=== PATIENT | male | born 1960 | race Caucasian/White ===

== ENCOUNTER 2019-04-03 07:33 | Inpatient (IN) ==
--- NOTE | 2019-03-20 14:17 | PAT Medication Instructions ---
Medication Instructions Date of Service March 20, 2019 Home Medications ascorbic acid (vitamin C) [Vitamin 1 g PO DAILY cyanocobalamin (vitamin B-12) 500 mcg PO DAILY lisinopril 5 mg PO QAM agntabcb-khm-GR-lycopen-lutein 1 tab PO DAILY [Centrum Silver Men] omeprazole 20 mg PO UD PRN pravastatin 40 mg PO QAM zinc 50 mg PO DAILY STOP taking 2 weeks before surgery (or as soon as possible if surgery is within 2 weeks) abjnsqhv-krb-RS-lycopen-lutein 1 tab PO DAILY [Centrum Silver Men] DO NOT take the morning of surgery ascorbic acid (vitamin C) [Vitamin 1 g PO DAILY cyanocobalamin (vitamin B-12) 500 mcg PO DAILY lisinopril 5 mg PO QAM zinc 50 mg PO DAILY Take morning of surgery With a small sip of water, OTHERWISE NOTHING TO EAT OR DRINK AFTER MIDNIGHT: omeprazole 20 mg PO UD PRN (if needed) pravastatin 40 mg PO QAM Other Notes If you have any questions please call us at [phone] or [phone] or [phone] or [phone]
--- NOTE | 2019-03-23 13:41 | Anesthesiology Consultation ---
Date of Service March 23, 2019 Assessment & Plan (1) Encounter for pre-operative examination: Chart Review Chart Review: Acceptable Risk for Surgery and Patient seen in Pre Admission Testing Teaching & Discussion Pre-Anesthesia Teaching/Discussion Notes: Instructed NPO after midnight before surgery,except medications with 15 cc of water. Medication instructions provided according to the PAT guidelines. History Surgery Operation Date: 04/03/19 12:05 Proposed Procedures p L4-L5 Decompression and Fusion (Left Far Lateral Disc), Spinal Cord Monitoring - Keanu Douglas DO Height/Weight Height: 5 ft 11 in Weight: 95.3 kg Allergies Allergy/AdvReac Type Severity Reaction Status Date / Time No Known Allergies Allergy Verified 03/18/19 12:39 Medications Home Medications Medication Instructions Recorded Confirmed Last Taken ascorbic acid (vitamin C) [Vitamin 1 g PO DAILY 03/18/19 03/18/19 Unknown C] cyanocobalamin (vitamin B-12) 500 mcg PO DAILY 03/18/19 03/18/19 Unknown [Vitamin B-12] lisinopril 5 mg PO QAM 03/18/19 03/18/19 03/18/19 gjpjegnn-ndn-EQ-lycopen-lutein 1 tab PO DAILY 03/18/19 03/18/19 Unknown [Centrum Silver Men] omeprazole 20 mg PO UD PRN 03/18/19 03/18/19 Unknown pravastatin 40 mg PO QAM 03/18/19 03/18/19 03/18/19 zinc 50 mg PO DAILY 03/18/19 03/18/19 Unknown Past Medical History Medical History Acid reflux CONTROLLED Back problem LEFT FOOT NEUROPATHY History of clenching of mandible + CLENCHING/LEFT SIDED JAW SORENESS Hyperlipidemia Hypertension Exercise / Class Metabolic Activity II 4-5 Yardwork/Stairs/Walk up hill Past Surgical History Surgical History History of cardiac cath 8+ YEARS AGO= NO STENTS History of colonoscopy History of tonsillectomy History of vasectomy Past Anesthesia History No Hx of Anesthesia Complications and No Family Hx of Anesthesia Complications History of PONV No Hx of PONV and Hx of Motion Sickness Social History Smoking Status: Current some day smoker tobacco type: cigars Smoking cigarettes per day: RARE CIGAR USE (SOCIAL) Do You Dip or Chew Tobacco: No Hx Alcohol Use: Yes Alcohol type: beer alcohol intake frequency: other Alcohol Intake Frequency Comment: 10 BEERS/WEEK Hx Substance Use: No substance use type: does not use Review of Systems Patient denies chest pain, shortness of breath, dyspnea on exertion, cough, wheezing, palpitations. Physical Exam Vital Signs VITALS BP 147/83 P 59 TEMP 97.6 SP02 98%RA RESP 18 PHYSICAL Full neck and c-spine range of motion. Full TMJ range of motion. TMD 3 finger breaths Mallampati Score 2 Dentition: intact Lungs: clear throughout to auscultation Cardiac: regular rate and rhythm, no murmurs noted Spine: normal Carotid arteries: negative bruit Extremities: no edema Trimmed fine Testing Electrocardiogram Date: 03/24/19 Findings: + NSR @ (64) Chest X-Ray Date: 03/24/19 Findings: + NAD Laboratory Results 03/23/19 13:55 03/23/19 13:55 Blood Type A Positive 03/23/19 13:55 Antibody Screen NEGATIVE 03/23/19 13:55 PT 10.1 Seconds (9.0-12.0) 03/23/19 13:55 INR 1.0 (0.9-1.1) 03/23/19 13:55 APTT 26.1 Seconds (21.0-31.0) 03/23/19 13:55 Urine Color Yellow 03/23/19 13:55 Urine Appearance Clear (Clear) 03/23/19 13:55 Urine pH 7.5 (4.5-7.5) 03/23/19 13:55 Ur Specific [place] 1.010 (1.000-1.030) 03/23/19 13:55 Urine Protein Negative (Negative) 03/23/19 13:55 Urine Glucose (UA) Negative (Negative) 03/23/19 13:55 Urine Ketones Negative (Negative) 03/23/19 13:55 Urine Nitrite Negative (Negative) 03/23/19 13:55 Ur Leukocyte Esterase Negative (Negative) 03/23/19 13:55
--- NOTE | 2019-03-23 14:16 | XRay Report ---
XR chest Pre-admission PA/Lat CLINICAL HISTORY: pat preoperative evaluation COMPARISON STUDY: No previous studies for comparison. FINDINGS: The bones soft tissues and hemidiaphragms are normal. The cardiomediastinal silhouette is n ormal. The lungs are clear. The pulmonary vasculature is normal. IMPRESSION: Negative chest. The above report was generated using voice recognition software. It may contain grammatical, syntax or spelling errors. Electronically signed by: Alex Terry M.D. 03/23/2019 2:14 PM
[2019-03-23 16:08] LABS: Appearance Urine Clear (Clear); Bilirubin Urine Negative (Negative); Color Urine Yellow; Glucose Urine UA Negative (Negative); Ketones Urine Negative (Negative); Leukocyte Esterase Urine Negative (Negative); Nitrite Urine Negative (Negative); Protein Urine Negative (Negative); Urobilinogen Urine Negative (Negative); pH Urine 7.5 (4.5-7.5)
[2019-03-23 16:09] LABS: Basophils # (auto) 0.03 K/uL (0-0.2); Basophils % (auto) 0.6 %; Eosinophils # (auto) 0.19 K/uL (0-0.5); Eosinophils % (auto) 3.7 %; Hematocrit (blood only) 40.2 % (42-52); Hemoglobin 14.1 g/dL (14.0-18.0); Immature Granulocytes # (auto) 0.01 K/uL (0.00-0.02); Immature Granulocytes % (auto) 0.2 %; Lymphocytes # (auto) 2.15 K/uL (1.2-3.4); Lymphocytes % (auto) 41.4 %; Mean Corpuscular Hgb Conc 35.1 g/dL (32-36); Mean Corpuscular Volume 87.4 fL (80-100); Mean Platelet Volume 9.3 fL (7.4-10.4); Monocytes % (auto) 9.6 %; Neutrophils # (auto) 2.31 K/uL (1.4-6.5); Neutrophils % (auto) 44.5 %; Platelet Count 223 K/uL (130-400); RDW Coefficient of Variation 12.8 % (11.5-14.5); RDW Standard Deviation 40.8 fL (36.4-46.3); White Blood Count 5.19 K/uL (4.8-10.8)
[2019-03-23 16:19] LABS: Partial Thromboplastin Time 26.1 Seconds (21.0-31.0); Prothrombin Time 10.1 Seconds (9.0-12.0)
[2019-03-23 16:20] LABS: BUN Creatinine Ratio 16.4 (10-20); Calcium 9.3 mg/dl (8.5-10.1); Creatinine Clr Calc Pharmacy 94.4 ml/min; Est GFR (African American) 96.7; Est GFR (Non-African American) 83.5; Potassium 4.2 mmol/L (3.5-5.1)
[~2019-04-03 07:33] MED LIST: ACETAMINOPHEN 500 MG TAB PO SCH; CEFAZOLIN 2000MG 2,000 MG/15 ML SYR IV SCH; CeleBREX 200 MG CAP PO SCH; GABAPENTIN 300 MG x 2 PO SCH; LR 15ML/HR IV SCH
[2019-04-03] MEDS ORDERED: ePHEDrine sulfate 50 MG/ML AMP IV PRN (08:23)
[2019-04-03] MEDS ORDERED: ATROPINE SULFATE 0.1 MG/ML 10ML SYR IV PRN (08:23)
[2019-04-03] MEDS ORDERED: DEXAMETHASONE SOD INJ 4 MG/ML VIAL IV PRN (08:23)
[2019-04-03] MEDS ORDERED: ONDANSETRON INJ 2 MG/ML 2 ML VIAL IV PRN ×2 (08:23→12:54)
[2019-04-03] MEDS ORDERED: HYDROmorphone INJ 2 MG/ML SYR/VIAL IV PRN (08:23)
[2019-04-03] MEDS ORDERED: DEXAMETHASONE SOD INJ 4 MG/ML VIAL ONE ×2 (08:28→08:29)
[2019-04-03] MEDS ORDERED: LIDOCAINE HCL 2% 2 ML VIAL/AMP(20MG/ML) INFIL ONE (08:28)
[2019-04-03] MEDS ORDERED: PROPOFOL IV EMULSION 10 MG/ML 20 ML VIAL IV ONE (08:28)
[2019-04-03] MEDS ORDERED: ONDANSETRON INJ 2 MG/ML 2 ML VIAL ONE ×2 (08:28→11:30)
[2019-04-03] MEDS ORDERED: NEOSTIGMINE METHYLSULFATE 1 MG/ML 10ML VIAL ONE (08:28)
[2019-04-03] MEDS ORDERED: GLYCOPYRROLATE 0.2 MG/ML VIAL ONE (08:28)
[2019-04-03] MEDS ORDERED: LARYING-O-JET KIT (LTA) ONE (08:29)
[2019-04-03] MEDS ORDERED: MIDAZOLAM HCL 1 MG/ML 2ML VIAL ONE (08:29)
[2019-04-03] MEDS ORDERED: fentaNYL citrate 100 MCG/2 ML VIAL ONE (08:29)
[2019-04-03] MEDS ORDERED: HYDROmorphone INJ 2 MG/ML SYR/VIAL ONE (08:29)
--- NOTE | 2019-04-03 09:22 | History & Physical Bridge Note ---
Date of Service April 03, 2019 History & Physical Bridge Note I have examined the patient, reviewed the History & Physical and in the interval since the performance of the History & Physical I have noted the following changes of clinical significance: no changes noted
--- NOTE | 2019-04-03 09:23 | History & Physical Report ---
Date of Service April 03, 2019 Assessment & Plan (1) Spinal stenosis, lumbar region with neurogenic claudication: L4-5 decompression and fusion Present on Admission?: Yes History of Present Illness Chief Complaint: Back and leg pain Primary Care Provider: Geovany RojasYudith Downs Male who presents with chronic persistent back and left leg pain. After failing extensive course of nonoperative care is here for surgical intervention. Allergies Allergy/AdvReac Type Severity Reaction Status Date / Time No Known Allergies Allergy Verified 03/18/19 12:39 Home Medications Home Medications Medication Instructions Recorded Confirmed Type ascorbic acid (vitamin C) [Vitamin 1 g PO DAILY 03/18/19 03/18/19 History C] cyanocobalamin (vitamin B-12) 500 mcg PO DAILY 03/18/19 03/18/19 History [Vitamin B-12] lisinopril 5 mg PO QAM 03/18/19 03/18/19 History nkrdfefn-rrh-HP-lycopen-lutein 1 tab PO DAILY 03/18/19 03/18/19 History [Centrum Silver Men] omeprazole 20 mg PO UD PRN 03/18/19 03/18/19 History pravastatin 40 mg PO QAM 03/18/19 03/18/19 History zinc 50 mg PO DAILY 03/18/19 03/18/19 History Past Med/Surg History Medical History Acid reflux CONTROLLED Back problem LEFT FOOT NEUROPATHY History of clenching of mandible + CLENCHING/LEFT SIDED JAW SORENESS Hyperlipidemia Hypertension Surgical History History of cardiac cath 8+ YEARS AGO= NO STENTS History of colonoscopy History of tonsillectomy History of vasectomy Social History Preferred Language: Polish Communication Ability: Effective Slabber Required: No Beliefs That Will Affect Care: None Current Living Situation: Spouse Other Information That Helps Us Care for You: No Feels Safe at Home: Yes Smoking Status: Former smoker Tobacco Type: cigars Cigarettes Per Day: RARE CIGAR USE (SOCIAL) Do You Dip or Chew Tobacco: No Hx Alcohol Use: Yes Alcohol type: beer Hx Substance Use: No Physical Exam Vital Signs (Past 24 Hours): Last Vital Signs Temp 36.4 C L 04/03/19 07:54 Pulse 64 04/03/19 07:54 Resp 18 04/03/19 07:54 BP 140/85 04/03/19 07:54 Pulse Ox 97 04/03/19 07:54 Physical Exam: Patient is alert and oriented neurologically intact.
[2019-04-03] MEDS ORDERED: BACITRACIN INJ 50,000 UNIT VIAL ONE (09:29)
[2019-04-03] MEDS ORDERED: BUPIVACAINE/EPINEPHRINE 0.5% MPF 1:200,000 30 ML VIAL ONE (09:29)
[2019-04-03] MEDS ORDERED: PHENYLEPHRINE 100MCG/ML 5ML SYR ONE (10:36)
[2019-04-03] MEDS ORDERED: ALBUMIN HUMAN 5% 12.5 GM/250 ML VIAL IV ONE (10:56)
[2019-04-03] MEDS ORDERED: FLOSEAL HEMOSTATIC MATRIX 10ML TOP ONE (11:19)
--- NOTE | 2019-04-03 11:29 | Fluoroscopy Report ---
FL lumbar spine 2-3V CLINICAL HISTORY: 58 years-old Male presenting with L4-L5 DECOMPRESSION. TECHNIQUE: 2 fluoroscopic image(s) recorded as part of an intraoperative procedure. COMPARISON: None. FINDINGS/IMPRESSION: Postsurgical changes of bilateral posterior transpedicular screw and nini fixation of L4-5 with interb ja spacer and L4 laminectomy. Please see surgical report for further details. Fluoroscopy dosage (mGy): 16.27. Fluoroscopy time: 17.8 seconds. Number or time of high level fluoroscopy (HLF), digital spot, or digital subtraction images: 0. Electronically signed by: Pb Chacon M.D. 04/03/2019 11:27 AM
--- NOTE | 2019-04-03 11:37 | Operative Report ---
Post Operative Report Pre & Post Diagnosis Operation Date: 04/03/19 09:05 Pre-Op Diagnosis: Spinal Stenosis, Lumbar Region with Neurogenic Claudication Post-Op Diagnosis: Spinal Stenosis, Lumbar Region with Neurogenic Claudication Procedure Operation Date: 04/03/19 09:05 Actual Procedures #1 lumbar decompression bilateral medial facetectomies foraminotomies L4-5 L5- S1. #2 posterior spinal fusion L5-S1. #3 placement posterior instrumentation L5-S1. #4 interbody fusion L5-S1. #5 placement of peek cage 13 x 26 mm L5-S1. #6 placement of local autograft in the posterior lateral gutters. #7 placement infuse collagen sponge, mass graft in the posterior lateral gutters and ostial amp and interbody space. Surgeon Keanu Douglas, Rotational Moulding Operator None Estimated Blood Loss 350 Findings Consistent with Post-Op Diagnosis Specimens None Indications This is a 4-year-old male who presents with above-mentioned. After failing extensive course of nonoperative care he like to undergo the above-mentioned procedure. Description of Procedure Patient was met with identified and informed consent obtained. Patient was then taken well-padded eyes inspected to ensure her no external pressure placed upon them. This point lumbar spine is prepped and draped in a normal sterile fashion. Sharp dissection with the assistance of Bovie cautery was performed down to and exposing the lamina and transverse processes of L5 and S1 levels bilaterally. From a caudal cephalad fashion complete laminectomy of L5 partial laminectomy of L4 was performed including bilateral medial facetectomies and foraminotomies. Pedicle screw was then placed in L5 and S1 levels bilaterally with assistance of fluoroscopy the process nini placed. Through a transforaminal approach on the left complete discectomy was performed in plate graded to subcortical bleeding bone and a 13 x 26 mm peek cage filled with ostium bone graft tapped in position. The rods were then locked into final position bilaterally. The transverse processes of L5 and sacral ala bur to subcortical bleeding bone. Infuse collagen sponge mass graft local autograft placed in the posterior gutters. 15 round MIREYA drain inserted. 15 round MIREYA drain inserted. Incision was then closed with 1 Vicryl in the fascia 2-0 Vicryl subcutaneous layer and 4-0 Monocryl for final skin closure. Steri-Strip sterile dressings placed. Patient will continue to PACU stable condition. Please note spinal cord monitoring utilized throughout the procedure and no changes noted. I attest to the content of the Intraoperative Record and any orders documented therein. Any exceptions are noted below.
[2019-04-03] MEDS ORDERED: ROCURONIUM BROMIDE 10 MG/ML 5 ML VIAL ONE (11:49)
[2019-04-03] MEDS: fentaNYL citrate 100 MCG/2 ML VIAL IV PRN ×4 (11:54→12:14)
--- NOTE | 2019-04-03 12:29 | Anesthesiology Progress Note ---
Date of Service April 03, 2019 Anesthesia Post Procedure Vital Signs Vital Signs: Temp Pulse Resp BP Pulse Ox 04/03/19 12:20 36.4 C L 78 19 123/80 95 04/03/19 12:10 68 15 139/72 95 04/03/19 12:00 76 13 142/84 H 100 04/03/19 11:50 75 9 L 154/85 H 99 04/03/19 11:43 36.7 C 87 16 160/85 H 99 04/03/19 07:54 36.4 C L 64 18 140/85 97 Pain Intensity Back: Pain Intensity: 3 Transfer of Care Handoff Completed per policy Notes Mental Status: alert / awake / arousable and participated in evaluation Patient Amnestic to Procedure: Yes Nausea / Vomiting: adequately controlled Pain: adequately controlled Airway Patency, RR, SpO2: stable & adequate BP & HR: stable & adequate Hydration State: stable & adequate Anesthetic Complications: no major complications apparent
[2019-04-03] MEDS ORDERED: ALUMINUM/MAGNESIUM SUSP 30 ML UDC PO PRN (12:54)
[2019-04-03] MEDS ORDERED: ACETAMINOPHEN 1,000 MG/100 ML VIAL IV PRN (12:54)
[2019-04-03] MEDS ORDERED: SOD PHOSPHATE/SOD BIPHOSPHATE ENEMA 132 ML BTL PR PRN (12:54)
[2019-04-03] MEDS ORDERED: FAMOTIDINE 20 MG TAB PO PRN (12:54)
[2019-04-03] MEDS ORDERED: METOCLOPRAMIDE HCL INJ 5 MG/ML 2 ML VIAL IV PRN (12:54)
[2019-04-03] MEDS ORDERED: BISACODYL 10 MG SUPP PR PRN (12:54)
[2019-04-03] MEDS ORDERED: DO NOT ADMINISTER FLU VACCINE PRN (12:54)
[2019-04-03] MEDS ORDERED: LORazepam 0.5 MG/1 ML VIAL IV PRN (12:54)
[2019-04-03] MEDS ORDERED: MAGNESIUM HYDROXIDE SUSP 30 ML UDC PO PRN (12:54)
[2019-04-03] MEDS ORDERED: ONDANSETRON 4 MG TAB PO PRN (12:54)
[2019-04-03] MEDS ORDERED: TRAMADOL HCL 50 MG TABLET PO PRN (12:54)
[2019-04-03] MEDS ORDERED: LORazepam 0.5 MG TAB PO PRN (12:54)
[2019-04-03] MEDS ORDERED: DO NOT ADMINISTER PNEUMOCOCCAL VACCINE PRN (12:54)
[2019-04-03] MEDS ORDERED: PROMETHAZINE HCL 12.5 MG in SODIUM CHLORIDE 0.9% 50 ML IV PRN (12:54)
[2019-04-03] MEDS ORDERED: ACETAMINOPHEN 500 MG TAB PO PRN (12:54)
[2019-04-03] MEDS ORDERED: HYDROmorphone INJ 0.5 MG/0.5 ML SYR ONE (13:25)
[2019-04-03] MEDS: HYDROmorphone INJ 0.5 MG/0.5 ML SYR IV PRN ×2 (13:25→18:48)
[2019-04-03] MEDS ORDERED: PANTOprazole 40 MG TAB PO PRN (14:00)
[2019-04-03] MEDS: LACTATED RINGER'S 1,000 ML IV SCH ×2 (14:45→22:16)
[2019-04-03] MEDS: KETOROLAC 30 MG/ML VIAL IV SCH ×2 (14:45→20:14)
[2019-04-03] MEDS: OXYCODONE HCL IR 5 MG TAB (IMMEDIATE RELEASE) PO PRN ×2 (15:53→23:14)
[2019-04-03] MEDS: CEFAZOLIN 2000MG 2,000 MG/15 ML SYR IV SCH (18:48)
[2019-04-03] MEDS: DOCUSATE SODIUM/SENNA 50/8.6MG TAB PO SCH (20:14)
[2019-04-04] MEDS: CEFAZOLIN 2000MG 2,000 MG/15 ML SYR IV SCH (02:11)
[2019-04-04] MEDS: KETOROLAC 30 MG/ML VIAL IV SCH ×2 (02:11→08:00)
[2019-04-04] MEDS: HYDROmorphone INJ 0.5 MG/0.5 ML SYR IV PRN ×4 (02:15→21:07)
[2019-04-04] MEDS: LACTATED RINGER'S 1,000 ML IV SCH ×4 (05:01→22:30)
[2019-04-04 06:10] LABS: Basophils # (auto) 0.01 K/uL (0-0.2); Basophils % (auto) 0.1 %; Eosinophils # (auto) 0.01 K/uL (0-0.5); Eosinophils % (auto) 0.1 %; Hematocrit (blood only) 31.9 % (42-52); Hemoglobin 10.8 g/dL (14.0-18.0); Immature Granulocytes # (auto) 0.03 K/uL (0.00-0.02); Immature Granulocytes % (auto) 0.3 %; Lymphocytes % (auto) 11.9 %; Mean Corpuscular Hgb Conc 33.9 g/dL (32-36); Mean Corpuscular Volume 87.9 fL (80-100); Mean Platelet Volume 9.1 fL (7.4-10.4); Monocytes # (auto) 0.87 K/uL (0.11-0.59); Neutrophils # (auto) 8.66 K/uL (1.4-6.5); Neutrophils % (auto) 79.6 %; Platelet Count 172 K/uL (130-400); RDW Coefficient of Variation 12.9 % (11.5-14.5); RDW Standard Deviation 41.7 fL (36.4-46.3); Red Blood Count 3.63 M/uL (4.7-6.1); White Blood Count 10.88 K/uL (4.8-10.8)
[2019-04-04] MEDS: POLYETHYLENE (MIRALAX) 17 GM PACK PO SCH ×4 (06:15→23:12)
[2019-04-04 06:38] LABS: BUN Creatinine Ratio 15.7 (10-20); Calcium 8.7 mg/dl (8.5-10.1); Creatinine Clr Calc Pharmacy 94.4 ml/min; Est GFR (African American) 96.7; Est GFR (Non-African American) 83.5
[2019-04-04] MEDS: ASCORBIC ACID 500 MG TAB PO SCH (09:06)
[2019-04-04] MEDS: CEROVITE ADV FORMULA TAB PO SCH (09:06)
[2019-04-04] MEDS: LISINOPRIL 5 MG TAB PO SCH (09:07)
[2019-04-04] MEDS: ZINC SULFATE 220 MG CAPSULE PO SCH (09:07)
[2019-04-04] MEDS: CYANOCOBALAMIN 500 MCG TABLET (VITAMIN B-12) PO SCH (09:07)
[2019-04-04] MEDS: PRAVASTATIN SOD 40 MG TAB PO SCH (09:07)
--- NOTE | 2019-04-04 10:29 | Orthopedic Progress Note ---
Date of Service April 04, 2019 Assessment & Plan (1) Spinal stenosis, lumbar region with neurogenic claudication: This time we will continue physical therapy advance his bowel regimen anticipate discharge home tomorrow. Present on Admission?: Yes Subjective Back pain is controlled leg symptoms markedly improved. Physical Exam Physical Exam: On exam patient is in the chair at the bedside. His leg pain is improved. Good strength testing. Results & Data Vital Signs (Past 12 Hours) Vital Signs Temp Pulse Pulse Resp BP Pulse Ox 04/04/19 10:03 98 04/04/19 07:15 36.6 C 65 16 128/71 99 04/04/19 04:05 36.7 C 81 14 104/61 97 04/03/19 23:04 36.7 C 96 H 16 111/69 99
--- NOTE | 2019-04-04 11:31 | Anesthesiology Progress Note ---
Date of Service April 04, 2019 Anesthesia Post Procedure Vital Signs Vital Signs: Temp Pulse Pulse Resp BP BP Pulse Ox 04/04/19 10:48 36.7 C 67 16 154/81 H 93 04/04/19 10:03 98 04/04/19 07:15 36.6 C 65 16 128/71 99 04/04/19 04:05 36.7 C 81 14 104/61 97 04/03/19 23:04 36.7 C 96 H 16 111/69 99 04/03/19 20:18 36.6 C 83 16 128/65 94 04/03/19 16:16 36.7 C 73 16 129/70 94 04/03/19 14:47 81 16 117/72 92 04/03/19 13:39 76 18 131/79 04/03/19 13:17 36.4 C L 78 20 125/76 99 04/03/19 12:57 36.5 C 72 16 143/77 H 99 04/03/19 12:30 36.4 C L 58 L 16 120/65 94 04/03/19 12:20 36.4 C L 78 19 123/80 95 04/03/19 12:10 68 15 139/72 95 04/03/19 12:00 76 13 142/84 H 100 04/03/19 11:50 75 9 L 154/85 H 99 04/03/19 11:43 36.7 C 87 16 160/85 H 99 Pain Intensity Back: Pain Intensity: 0 Transfer of Care Handoff Completed per policy Notes Mental Status: alert / awake / arousable and participated in evaluation Patient Amnestic to Procedure: Yes Nausea / Vomiting: adequately controlled Pain: adequately controlled Airway Patency, RR, SpO2: stable & adequate BP & HR: stable & adequate Hydration State: stable & adequate Anesthetic Complications: no major complications apparent and Pt Satisfied with anesthetic care
[2019-04-04] MEDS: HYDROCODONE/ACETAMINOPHEN 10/325 TAB PO PRN ×2 (17:23→23:16)
[2019-04-04] MEDS: DOCUSATE SODIUM/SENNA 50/8.6MG TAB PO SCH (21:07)
[2019-04-05] MEDS: HYDROCODONE/ACETAMINOPHEN 10/325 TAB PO PRN (05:44)
--- NOTE | 2019-04-05 08:02 | Discharge Summary ---
Date of Service April 05, 2019 Admission HPI Per Admitting Provider Male who presents with chronic persistent back and left leg pain. After failing extensive course of nonoperative care is here for surgical intervention. Discharge Data Consultations 04/03/19 12:54 Consult Case Management - Discharge Planning Routine Procedures Performed Operation Date: 04/03/19 09:05 Actual Procedures p L4-L5 Decompression and Fusion, Spinal Cord Monitoring, Interbody placement at L4-L5, Application of OsteoAMP, and Bone Morpogenetic Protein(Not Applicable) - Keanu Douglas, Hospital Course (1) Spinal stenosis, lumbar region with neurogenic claudication: Patient is a 58-year-old male with history physical examination review of images consistent with the mentioned diagnosis. This reason was brought to the operating room and underwent an L5-S1 decompression fusion. This was performed by Dr. Douglas under general anesthesia. The patient left the PACU with a MIREYA drain in place. He is transferred the orthopedic floor and placed on GI and DVT prophylaxis. He is seen by physical therapy postop day 1. He is progressed nicely throughout his hospital course. His abdomen states soft nontender he tolerates p.o. and has had a bowel movement. At this point is safe for home discharge. We reviewed his verbal discharge instructions. He is going to have his dressing changed once daily until the dressing is dry and then may start to shower. He is to use his hydrocodone and tramadol for pain control. He will contact her office for appointment approximately 2 weeks out from surgery or sooner if he develops any fevers chills or increased drainage.
[2019-04-05] MEDS: CYANOCOBALAMIN 500 MCG TABLET (VITAMIN B-12) PO SCH (08:34)
[2019-04-05] MEDS: CEROVITE ADV FORMULA TAB PO SCH (08:34)
[2019-04-05] MEDS: PRAVASTATIN SOD 40 MG TAB PO SCH (08:34)
[2019-04-05] MEDS: LISINOPRIL 5 MG TAB PO SCH (08:34)
[2019-04-05] MEDS: ASCORBIC ACID 500 MG TAB PO SCH (08:35)
[2019-04-05] MEDS: ZINC SULFATE 220 MG CAPSULE PO SCH (08:35)
== END 2019-04-05 10:30 | disposition home or self-care (01) | DRG 455 ==
LOC: ASU 07:33 → 3E 11:40

== ENCOUNTER 2022-07-03 07:39 | Inpatient (IN) ==
--- NOTE | 2022-06-19 11:11 | PAT Medication Instructions ---
Medication Instructions Date of Service June 19, 2022 Home Medications Medication Instructions Recorded hydrocodone 10 mg-acetaminophen 1 tab PO Q8H #30 tabs 04/04/19 325 mg tablet ascorbic acid (vitamin C) 1,000 mg tablet (Vitamin C) 1 g PO QAM cyanocobalamin (vitamin B-12) 500 mcg tablet (Vitamin B-12) 500 mcg PO QAM Centrum Silver Men 1 tab PO QAM omeprazole 20 mg capsule,delayed release 20 mg PO UD PRN Acid Reflux pravastatin 40 mg tablet 40 mg PO QAM hydrocodone 10 mg-acetaminophen 325 mg tablet 1 tab PO Q8H acetaminophen 500 mg tablet 1,000 mg PO QPM lisinopril 10 mg tablet 10 mg PO QAM DO NOT take the morning of surgery ascorbic acid (vitamin C) 1,000 mg tablet (Vitamin C) 1 g PO QAM cyanocobalamin (vitamin B-12) 500 mcg tablet (Vitamin B-12) 500 mcg PO QAM Centrum Silver Men 1 tab PO QAM lisinopril 10 mg tablet 10 mg PO QAM Take morning of surgery With a small sip of water, OTHERWISE NOTHING TO EAT OR DRINK AFTER MIDNIGHT: omeprazole 20 mg capsule,delayed release 20 mg PO UD PRN Acid Reflux (if needed) pravastatin 40 mg tablet 40 mg PO QAM hydrocodone 10 mg-acetaminophen 325 mg tablet 1 tab PO Q8H Take evening before surgery omeprazole 20 mg capsule,delayed release 20 mg PO UD PRN Acid Reflux (if needed) hydrocodone 10 mg-acetaminophen 325 mg tablet 1 tab PO Q8H acetaminophen 500 mg tablet 1,000 mg PO QPM Other Notes If you have any questions please call us at [phone] or [phone] or [phone] or [phone]
--- NOTE | 2022-06-21 13:17 | Anesthesiology Consultation ---
Date of Service June 21, 2022 Assessment & Plan (1) Encounter for pre-operative examination: - Patient acceptable risk for surgery pending most recent cardiology office visit note. - COVID screening: Per assessment on 06/18: No known COVID-19 positive contacts or current COVID-19 related symptoms. Travel screen negative. Patient vaccinated. Most recent Covid positive 04/18/22 ([facility]; [place]- [facility]). Symptoms at time: body aches, fever, sneezing > resolved. Case reviewed with Niurka Fournier- she states pt can proceed as scheduled without additional preop Covid testing or additional Covid contact precautions per 90 days protocol. - S/P L4-S1 decompression, L5-S1 fusion (04/08/19): Grade view 1, MAC#3, ETT 7.5 [address] [facility]. DL x1, atraumatic. No issues noted per post-op anesthesia progress note. Chart Review Chart Review: Patient seen in Pre Admission Testing Teaching & Discussion Pre-Anesthesia Teaching/Discussion Notes: Instructed NPO after midnight before surgery,except medications with 15 cc of water. Medication instructions provided according to the PAT guidelines. History Surgery Operation Date: 07/03/22 10:05 Proposed Procedures p L3-L4 Decompression and Fusion, L3-L4 Hardware Removal, Spinal Cord Monitoring - Keanu Douglas, Height/Weight Height: 5 ft 11 in Weight: 92.5 kg Allergies Allergy/AdvReac Type Severity Reaction Status Date / Time No Known Allergies Allergy Verified 06/18/22 13:57 Medications Home Medications Medication Instructions Recorded Confirmed Last Taken ascorbic acid (vitamin C) 1,000 mg 1 g PO QAM 03/18/19 06/18/22 Unknown tablet (Vitamin C) cyanocobalamin (vitamin B-12) 500 500 mcg PO QAM 03/18/19 06/18/22 Unknown mcg tablet (Vitamin B-12) kcsjaxvm-mec-jbfla acid 300 1 tab PO QAM 03/18/19 06/18/22 Unknown mcg-lycopene 600 mcg-lutein 300 mcg tablet (Centrum Silver Men) omeprazole 20 mg capsule,delayed 20 mg PO UD PRN Acid Reflux 03/18/19 06/18/22 Unknown release pravastatin 40 mg tablet 40 mg PO QAM 03/18/19 06/18/22 03/18/19 hydrocodone 10 mg-acetaminophen 1 tab PO Q8H #30 tabs 04/04/19 06/18/22 Unknown 325 mg tablet acetaminophen 500 mg tablet 1,000 mg PO QPM 06/18/22 06/18/22 Unknown lisinopril 10 mg tablet 10 mg PO QAM 06/18/22 06/18/22 Unknown gabapentin 1 tab PO QID 06/21/22 06/21/22 Unknown prednisone 10 mg tablet 10 mg PO DAILY 06/21/22 06/21/22 Unknown Past Medical History Medical History Acid reflux Controlled Back problem Left foot neuropathy History of COVID-19 Covid positive x2 Most recent Covid positive 04/18/22 ([facility]; [facility]). Symptoms at time: body aches, fever, sneezing > resolved Hyperlipidemia Hypertension Spinal stenosis, lumbar region with neurogenic claudication Exercise / Class Metabolic Activity II 4-5 Yardwork/Stairs/Walk up hill (one FS (no CP, no SOB)) Past Family History Family History Other No family history of adverse response to anesthesia Past Surgical History Surgical History History of arthroscopy of left knee History of arthroscopy of right knee History of cardiac cath 8+ years ago > no stents History of colonoscopy History of lumbar spinal fusion L4-S1 decompression, L5-S1 fusion (04/08/19): Grade view 1, MAC#3, ETT 7.5 at [facility]. DL x1, atraumatic. No issues noted per post-op anesthesia progress note. History of tonsillectomy History of vasectomy Past Anesthesia History No Hx of Anesthesia Complications and No Family Hx of Anesthesia Complications History of PONV No Hx of PONV and No Hx of Motion Sickness Social History Smoking Status: Former smoker Do You Dip or Chew Tobacco: No Smoking End Date: Quit cigarette use approximately 8yrs ago (rare annual cigar) Hx Alcohol Use: Yes Alcohol type: beer alcohol intake frequency: a few times a month Hx Substance Use: Yes (was using marijuana gummies (advised on policy)) substance use type: marijuana (Marijuana gummies PRN since trip to [place]) Review of Systems Patient denies chest pain, shortness of breath, dyspnea on exertion, fever, chills, cough, wheezing, palpitations. Physical Exam Vital Signs VITALS BP 148/82 P 71 TEMP 98.3 SP02 100%RA RESP 16 PHYSICAL Full cervical extension range of motion. Full TMJ range of motion. TMD 4 finger breaths Mallampati Score 1 Dentition: upper front right tooth implant Lungs: clear throughout to auscultation Cardiac: regular rate and rhythm, no murmurs noted Spine: normal Carotid arteries: negative bruit Extremities: no edema Lab Results Anesthesia Preop Results Results Anesthesia Widget: WBC 6.47 K/ul (4.8-10.8) 06/21/22 Hgb 13.3 g/dl (14.0-18.0) L 06/21/22 Hct 41.3 % (40.1-51.0) 06/21/22 Plt 250 K/uL (130-400) 06/21/22 Na 139 mmol/L (136-145) 06/21/22 K 4.5 mmol/L (3.5-5.1) 06/21/22 Cl 104 mmol/L (98-107) 06/21/22 CO2 31 mmol/L (21-32) 06/21/22 BUN 18 mg/dl (6-23) 06/21/22 Creat 1.00 mg/dl (0.6-1.4) 06/21/22 Glucose Level 118 mg/dl (70-99(Fasting)) H 06/21/22 PT 10.3 Seconds (9.0-12.0) 06/21/22 PTT 24.9 Seconds (21.0-31.0) 06/21/22 INR 1.0 (0.9-1.1) 06/21/22 Urine Color Yellow 06/21/22 Urine Appearance Clear (Clear) 06/21/22 Urine pH 6.0 (4.5-7.5) 06/21/22 Urine Specific [place] 1.015 (1.000-1.030) 06/21/22 Urine Protein Negative (Negative) 06/21/22 Urine Glucose (UA) Negative (Negative) 06/21/22 Urine Ketones Negative (Negative) 06/21/22 Urine Blood Negative (Negative) 06/21/22 Urine Nitrite Negative (Negative) 06/21/22 Urine Bilirubin Negative (Negative) 06/21/22 Urine Urobilinogen Negative (Negative) 06/21/22 Urine Leukocyte Esterase Negative (Negative) 06/21/22 Blood Type A Positive 06/21/22 Antibody Screen NEGATIVE 06/21/22 Testing Electrocardiogram Date: 02/06/22 Sinus rhythm (slow) at 52 bpm. "Normal ECG" Chest X-Ray Date: 06/21/22 Findings: + NAD Echocardiogram Date: 03/01/21 EF 55%. Mild LAD. Aortic valve is thickened. Physiologic FL. Normal aorta. Next Stress Test Date: 03/01/21 Type: nuclear No evidence of myocardial ischemia. LVEF 51%. Lexiscan stress ECG was negative for myocardial ischemia. Rare PVC.
[~2022-07-03 07:39] MED LIST changes: -CEFAZOLIN 2000MG 2,000 MG/15 ML SYR IV SCH; -GABAPENTIN 300 MG x 2 PO SCH; +GABAPENTIN 600 MG DOSE PO SCH; +ceFAZolin 2000MG 2,000 MG/15 ML SYR IV SCH
[2022-07-03] MEDS ORDERED: PROPOFOL IV EMULSION 10 MG/ML 20 ML VIAL IV ONE ×2 (08:16→10:58)
[2022-07-03] MEDS ORDERED: ONDANSETRON INJ 2 MG/ML 2 ML VIAL ONE (08:16)
[2022-07-03] MEDS ORDERED: DEXAMETHASONE SOD INJ 4 MG/ML VIAL ONE (08:16)
[2022-07-03] MEDS ORDERED: fentaNYL citrate 100 MCG/2 ML VIAL ONE ×2 (08:17→09:34)
[2022-07-03] MEDS ORDERED: MIDAZOLAM HCL 1 MG/ML 2ML VIAL ONE (08:17)
[2022-07-03] MEDS ORDERED: ROCURONIUM BROMIDE 10 MG/ML 5 ML VIAL IV ONE ×6 (08:17→09:44)
[2022-07-03] MEDS ORDERED: ePHEDrine sulfate 50 MG/ML AMP IV PRN (08:34)
[2022-07-03] MEDS ORDERED: ONDANSETRON INJ 2 MG/ML 2 ML VIAL IV PRN ×2 (08:34→12:22)
[2022-07-03] MEDS ORDERED: ATROPINE SULFATE 0.1 MG/ML 10ML SYR IV PRN (08:34)
[2022-07-03] MEDS ORDERED: HYDROmorphone INJ 1 MG/ML SYRINGE IV PRN (08:34)
--- NOTE | 2022-07-03 08:46 | History & Physical Bridge Note ---
Date of Service July 03, 2022 History & Physical Bridge Note I have examined the patient, reviewed the History & Physical and in the interval since the performance of the History & Physical I have noted the following changes of clinical significance: no changes noted
--- NOTE | 2022-07-03 08:49 | History & Physical Report ---
Date of Service July 03, 2022 Assessment & Plan (1) Spinal stenosis, lumbar region with neurogenic claudication: Plan: L3-L4 decompression fusion, L4-5 hardware removal History of Present Illness Chief Complaint: Back and leg pain Primary Care Provider: Geovany Downs This is a 61-year-old male presents with chronic persistent back and leg pain. After failing course of nonoperative care is here for surgical invention. Allergies Allergy/AdvReac Type Severity Reaction Status Date / Time No Known Allergies Allergy Verified 07/03/22 08:16 Home Medications Medication Instructions Recorded Confirmed Type ascorbic acid (vitamin C) 1,000 mg 1 g PO QAM 03/18/19 07/03/22 History tablet (Vitamin C) cyanocobalamin (vitamin B-12) 500 500 mcg PO QAM 03/18/19 07/03/22 History mcg tablet (Vitamin B-12) wyicndti-hun-uclvr acid 300 1 tab PO QAM 03/18/19 07/03/22 History mcg-lycopene 600 mcg-lutein 300 mcg tablet (Centrum Silver Men) omeprazole 20 mg capsule,delayed 20 mg PO UD PRN Acid Reflux 03/18/19 07/03/22 History release pravastatin 40 mg tablet 40 mg PO QAM 03/18/19 07/03/22 History hydrocodone 10 mg-acetaminophen 1 tab PO Q8H #30 tabs 04/04/19 07/03/22 Rx 325 mg tablet acetaminophen 500 mg tablet 1,000 mg PO QPM 06/18/22 07/03/22 History lisinopril 10 mg tablet 10 mg PO QAM 06/18/22 07/03/22 History gabapentin 1 tab PO QID 06/21/22 07/03/22 History prednisone 10 mg tablet 10 mg PO DAILY 06/21/22 07/03/22 History zolpidem 6.25 mg tablet,extended 6.25 mg PO HS 07/03/22 07/03/22 History release,multiphase (Jonny CR) Past Med/Surg History Medical History Acid reflux Controlled Back problem Left foot neuropathy History of COVID-19 Covid positive x2 Most recent Covid positive 04/18/22 ([facility]; [place]- [facility]). Symptoms at time: body aches, fever, sneezing > resolved Hyperlipidemia Hypertension Spinal stenosis, lumbar region with neurogenic claudication Surgical History History of arthroscopy of left knee History of arthroscopy of right knee History of cardiac cath 8+ years ago > no stents History of colonoscopy History of lumbar spinal fusion L4-S1 decompression, L5-S1 fusion (04/08/19): Grade view 1, MAC#3, ETT 7.5 at [facility]. DL x1, atraumatic. No issues noted per post-op anesthesia progress note. History of tonsillectomy History of vasectomy Family History Other No family history of adverse response to anesthesia Social History Smoking Status: Former smoker Smoking End Date: Quit cigarette use approximately 8yrs ago (rare annual cigar); Second Hand Exposure: No; Do You Dip or Chew Tobacco: No; Tobacco Cessation Education Requested by Patient: No Hx Alcohol Use: Yes Alcohol type: beer Hx Substance Use: Yes (was using marijuana gummies (advised on policy)) Preferred Language: Faroese Communication Ability: Effective Buffing Wheel Former Machine Required: No Beliefs That Will Affect Care: None marital status: Current Living Situation: Spouse Other Information That Helps Us Care for You: No Feels Safe at Home: Yes Safety Concerns: Feels Safe At This Time Assistive Devices: None Assistive Devices Comment: reading glasses Physical Exam Physical Exam: Patient is alert and oriented Heart regular rate and rhythm Lungs clear Results & Data Results & Data ([facility]) Vital Signs (Past 12 Hours) Vital Signs Temp Pulse Resp BP Pulse Ox O2 Del Method 07/03/22 08:30 36.8 C 57 L 20 148/99 H 98 Room Air
[2022-07-03] MEDS ORDERED: ceFAZolin 330 MG/ML 1 GM VIAL ONE (09:03)
[2022-07-03] MEDS ORDERED: BUPIVACAINE/EPINEPHRINE 0.25% 1:200,000 30 ML VIAL ONE (09:03)
[2022-07-03] MEDS ORDERED: PHENYLEPHRINE 100MCG/ML 5ML SYR ONE (09:56)
[2022-07-03] MEDS ORDERED: GLYCOPYRROLATE 0.2 MG/ML VIAL ONE ×2 (10:11)
[2022-07-03] MEDS ORDERED: NEOSTIGMINE METHYLSULFATE 1 MG/ML 10ML VIAL ONE (10:12)
[2022-07-03] MEDS ORDERED: ePHEDrine sulfate 50 MG/ML SYR ONE (10:24)
--- NOTE | 2022-07-03 10:59 | Operative Report ---
Post Operative Report Pre & Post Diagnosis Operation Date: 07/03/22 09:05 Pre-Op Diagnosis: Radiculopathy, Lumbar Region Far lateral disc herniation L3-L4 on the right Post-Op Diagnosis: Same I identified the patient and participated in the time-out.: Yes Procedure Operation Date: 07/03/22 09:05 Actual Procedures #1 removal of posterior instrumentation L4-5. #2 exploration of fusion L4-5 and #3 lumbar decompression with bilateral medial facetectomies and foraminotomies L2-L3 L3-L4. #4 posterior spinal fusion L3-L4. #5 placement posterior instru mentation L3-L5. #6 interbody fusion L3-L4. #7 placement of Spira 13 x 26 mm cage at L3-L4. #8 placement locally harvested morselized autograft in the posterior gutters. #9 placement of I factor combined with V toss in interbody space and posterior lateral gutters. Surgeon Keanu Douglas, Flight Communications Specialist Eloisa Valderrama Estimated Blood Loss 200 Findings Consistent with Post-Op Diagnosis Specimens None Indications This is a 61-year-old male who presents above-mentioned diagnosis after failing course of nonoperative care is here for the above-mentioned procedure. Description of Procedure Patient was met with identified informed consent obtained. Patient was then taken to the operative suite underwent a patient placed in a prone position on a Zoran table on top of the Frandy frame. All bony prominences well-padded eyes inspected to ensure no external pressure placed upon the. This point the lumbar spine was prepped and draped in the normal sterile fashion. Sharp dissection with assistance of Bovie cautery was performed down to and exposing the lamina and transverse processes of L3 and instrumentation L4-5 bilaterally. I then proceeded move the hardware bilaterally explore the fusion mass noting it to be mature and intact. Informed complete laminectomy of L3 partial laminectomy of L2 including bilateral medial facetectomies and foraminotomies addressing severe spinal stenosis. Also identified a massive foraminal extraforaminal disc herniation L3-L4 on the right and this was removed as well. Pedicle screws then placed at L3-L4-L5 bilaterally with assistance of fluoroscopy and appropriately sized nini placed. By way of a transforaminal portion right complete discectomy of L3-L4 was performed endplates curetted to subcortical bleeding bone and a 13 x 26 mm spiral cage with I factor tapped in position. The rods then compressed locked into final position bilaterally. The transverse processes of L3-L4 burred to subcortically bone. I factor and V toss and locally harvested morselized autograft was placed in the posterior gutters. 15 round MIREYA drain inserted. The incision was then closed with 1 Vicryl the fascia 2-0 Vicryl subcutaneously and 4 Monocryl for final skin closure. Steri-Strip sterile dressings placed. Patient waken taken PACU stable condition. Please note spinal cord monitoring was utilized at the procedure no changes noted. Lastly Eloisa Valderrama was present at the entire surgeon while the patient positioning complex portions of the surgery and final skin closure. I attest to the content of the Intraoperative Record and any orders documented therein. Any exceptions are noted below.
[2022-07-03] MEDS ORDERED: FLOSEAL HEMOSTATIC MATRIX 10ML TOP ONE ×2 (11:01→11:02)
[2022-07-03] MEDS: fentaNYL citrate 100 MCG/2 ML VIAL IV PRN ×3 (11:18→11:30)
--- NOTE | 2022-07-03 11:51 | Anesthesiology Progress Note ---
Date of Service July 03, 2022 Anesthesia Post Procedure Vital Signs Vital Signs: Temp Pulse Pulse Resp BP Pulse Ox O2 Del Method 07/03/22 11:35 83 24 136/69 98 Oxymask 07/03/22 11:45 74 25 H 128/65 98 Oxymask 07/03/22 11:25 85 16 144/78 H 98 Oxymask 07/03/22 11:15 97.7 F 86 15 164/85 H 98 Oxymask 07/03/22 08:30 98.2 F 57 L 20 148/99 H 98 Room Air O2 Flow Rate 07/03/22 11:35 5 07/03/22 11:45 5 07/03/22 11:25 5 07/03/22 11:15 5 07/03/22 08:30 Pain Intensity Lower Back: Pain Intensity: 7 Right Ankle: Pain Intensity: 10 Transfer of Care Handoff Completed per policy Notes Mental Status: alert / awake / arousable and participated in evaluation Patient Amnestic to Procedure: Yes Nausea / Vomiting: adequately controlled Pain: adequately controlled Airway Patency, RR, SpO2: stable & adequate BP & HR: stable & adequate Hydration State: stable & adequate Anesthetic Complications: no major complications apparent and Pt Satisfied with anesthetic care
[2022-07-03] MEDS ORDERED: PROMETHAZINE HCL 12.5 MG in SODIUM CHLORIDE 0.9% 50 ML IV PRN (12:22)
[2022-07-03] MEDS ORDERED: HYDROmorphone INJ 0.5 MG/0.5 ML SYR IV PRN (12:22)
[2022-07-03] MEDS ORDERED: ALUMINUM/MAGNESIUM SUSP 30 ML UDC PO PRN (12:22)
[2022-07-03] MEDS ORDERED: bisacodyL 10 MG SUPP PR PRN (12:22)
[2022-07-03] MEDS ORDERED: ACETAMINOPHEN 500 MG TAB PO PRN (12:22)
[2022-07-03] MEDS ORDERED: hydrOXYzine HCl 25 MG TAB PO PRN (12:22)
[2022-07-03] MEDS ORDERED: MAGNESIUM HYDROXIDE SUSP 30 ML UDC PO PRN (12:22)
[2022-07-03] MEDS ORDERED: SOD PHOSPHATE/SOD BIPHOSPHATE ENEMA 132 ML BTL PR PRN (12:22)
[2022-07-03] MEDS ORDERED: ACETAMINOPHEN 1,000 MG/100 ML VIAL IV PRN (12:22)
[2022-07-03] MEDS ORDERED: NALOXONE HCL 0.4 MG/1 ML VIAL/CARP IV PRN (12:22)
[2022-07-03] MEDS ORDERED: ONDANSETRON 4 MG OD TAB PO PRN (12:22)
[2022-07-03] MEDS ORDERED: FAMOTIDINE 20 MG TAB PO PRN (12:22)
[2022-07-03] MEDS ORDERED: LORazepam 0.5 MG in SYRINGE 0.25 ML IV PRN (12:22)
[2022-07-03] MEDS ORDERED: diphenhydrAMINE Capsule 25 MG CAP PO PRN (12:22)
[2022-07-03] MEDS ORDERED: METOCLOPRAMIDE HCL INJ 5 MG/ML 2 ML VIAL IV PRN (12:22)
[2022-07-03] MEDS ORDERED: LORazepam 0.5 MG TAB PO PRN (12:22)
[2022-07-03] MEDS: LACTATED RINGER'S 1,000 ML IV SCH ×2 (12:37→21:32)
[2022-07-03] MEDS ORDERED: PANTOprazole 40 MG TAB PO PRN (13:01)
[2022-07-03] MEDS: HYDROmorphone INJ 1 MG/ML SYRINGE IV PRN ×3 (13:08→21:33)
--- NOTE | 2022-07-03 14:02 | Hospitalist Consultation ---
Date of Consultation July 03, 2022 Assessment & Plan (1) Spinal stenosis, lumbar region with neurogenic claudication: S/P L3-L4 decompression with fusion POD #[address] Douglas under General Anesthesia - Tiered pain control with Rescue Narcan as you have - ICS as you have - Discontinued PRN Benzodiazepines and Vistaril - Discontinuation of Famotidine in place of schedule PPI - Pain control per primary team - ABX per primary team - Steroids per primary team - Blood transfusions per primary team - Drain Management per primary team - IVF per primary team - VTE prophylaxis per primary team - Diet per primary team - PT/OT per primary team Scheduled BID PPI while on Decadron 8mg IV (2) Hyperlipidemia: Continue Statin (3) Hypertension: Hold AM Lisinopril for monring- if Renal indices remain normal and hemodynamics remain stable- restart (4) Acid reflux: On PPI at home 40mg Daily - discontinue famotidine scheduled - schedule PPI BID orally - continue BID dosing while on Decadron 8 mg - If symptoms not controlled or worsen add carafate (5) Palpitations: History of with resolution following retiring and lifestyle changes - Stress ECHO negative 03/01 Supervising Physician Co-Signing Physician Notes Patient seen and examined, chart reviewed, case discussed with MYKE Lin and I agree with the assessment and plan as above except as otherwise noted Labs and images reviewed Patient is 61-year-old male with lumbar spinal stenosis and neurogenic claudication status post operative intervention with resolution of his lower extremity symptoms. Seen for postoperative management. Patient feels well, and is happy that his lower extremity pain has completely resolved. Is moving from bed to chair and ambulating at time of assessment. Midline lumbar surgical dressing intact, C/D/I. Breathing is unlabored, lungs are clear. Lees is in place draining light yellow urine. Normotensive. Patient reports he does not have pain, feels well and has no acute questions or concerns. Agree with management as recommended above. May resume lisinopril in 48 hours from surgery, or tomorrow if hypertensive and renal function at baseline. History of Present Illness Reason for Consultation: Medical Managment Requesting Physician: Dr. Douglas Attending Physician: Keanu Douglas, DO History of Present Illness 61 YOM that is not known to our system and with no recent records noted on the chart. Information gathered in this consult is from the patient. With a history of HTN, HLD, and GERD, COVID 19 (06/01). He had a remote history of palpitations that he notes went away when he retired about 3 years ago. Patient reports originally injuring his back when he fell off a ladder, this was exacerbated when he had COVID and coughed. This progressed to left leg weakness and giving out resulting in other falls at home. He was evaluated by Dr. Douglas and underwent a L3-L4 decompression with fusion and previous hardware removal. Patient was intubated for the case and underwent general anesthesia. He has a MIREYA drain placed, with EBL of 200 ml reported. The patient was evaluated in his room postoperatively. He is awake, on 1L NC and tolerating liquids without nausea or vomiting. His MIREYA drain is noted and with serous sang output about 3/4 full. Drinks socially and reports never having withdrawal symptoms Previous smoker reports no lung problems Recommendations - Scheduled BID PPI while on Decadron 8mg IV - Rescue Narcan as you have - Discontinued PRN Benzodiazepines and Vistaril - Discontinuation of Famotidine in place of schedule PPI - Pain control per primary team - ABX per primary team - Steroids per primary team - Blood transfusions per primary team - Drain Management per primary team - IVF per primary team - VTE prophylaxis per primary team - Diet per primary team - PT/OT per primary team Allergies Allergy/AdvReac Type Severity Reaction Status Date / Time No Known Allergies Allergy Verified 07/03/22 08:16 Home Medications Medication Instructions Recorded Confirmed Type ascorbic acid (vitamin C) 1,000 mg 1 g PO QAM 03/18/19 07/03/22 History tablet (Vitamin C) cyanocobalamin (vitamin B-12) 500 500 mcg PO QAM 03/18/19 07/03/22 History mcg tablet (Vitamin B-12) hbxxxddm-fpz-fvaty acid 300 1 tab PO QAM 03/18/19 07/03/22 History mcg-lycopene 600 mcg-lutein 300 mcg tablet (Centrum Silver Men) omeprazole 20 mg capsule,delayed 20 mg PO UD PRN Acid Reflux 03/18/19 07/03/22 History release pravastatin 40 mg tablet 40 mg PO QAM 03/18/19 07/03/22 History hydrocodone 10 mg-acetaminophen 1 tab PO Q8H #30 tabs 04/04/19 07/03/22 Rx 325 mg tablet acetaminophen 500 mg tablet 1,000 mg PO QPM 06/18/22 07/03/22 History lisinopril 10 mg tablet 10 mg PO QAM 06/18/22 07/03/22 History gabapentin 1 tab PO QID 06/21/22 07/03/22 History prednisone 10 mg tablet 10 mg PO DAILY 06/21/22 07/03/22 History zolpidem 6.25 mg tablet,extended 6.25 mg PO HS 07/03/22 07/03/22 History release,multiphase (Ambien CR) Patient History Medical History (Updated 07/03/22 @ 14:47 by MYKE Rodriguez) Acid reflux Controlled Back problem Left foot neuropathy History of COVID-19 Covid positive x2 Most recent Covid positive 04/18/22 ([facility] [place] Symptoms at time: body aches, fever, sneezing > resolved Hyperlipidemia Hypertension Spinal stenosis, lumbar region with neurogenic claudication Surgical History History of arthroscopy of left knee History of arthroscopy of right knee History of cardiac cath 8+ years ago > no stents History of colonoscopy History of lumbar spinal fusion L4-S1 decompression, L5-S1 fusion (04/08/19): Grade view 1, MAC#3, ETT 7.5 at [facility]. DL x1, atraumatic. No issues noted per post-op anesthesia progress note. History of tonsillectomy History of vasectomy Family History Other No family history of adverse response to anesthesia Social History Smoking Status: Former smoker Smoking End Date: Quit cigarette use approximately 8yrs ago (rare annual cigar); Second Hand Exposure: No; Do You Dip or Chew Tobacco: No; Tobacco Cessation Education Requested by Patient: No Hx Alcohol Use: Yes Alcohol type: beer Hx Substance Use: Yes (was using marijuana gummies (advised on policy)) Preferred Language: Panamanian Communication Ability: Effective Obstetrics Gyn Required: No Beliefs That Will Affect Care: None marital status: Current Living Situation: Spouse Other Information That Helps Us Care for You: No Feels Safe at Home: Yes Safety Concerns: Feels Safe At This Time Assistive Devices: None Assistive Devices Comment: reading glasses Review of Systems Review of Systems: REVIEW OF SYSTEMS: Constitutional: No fever, sweats or chills Eyes: No diplopia, no worsening or blurred vision ENT: normal hearing, no trouble swallowing Respiratory: No cough, sputum, dyspnea at rest or on exertion Cardiovascular: No chest pain, tightness or palpitations Abdomen: No pain, nausea, vomiting, diarrhea or constipation Musculoskeletal: (+) back pain, calf pain, swelling Neurologic: (+) weakness, numbness/tingling, and balance problems preoperatively Psychiatric: No anxiety or depression Skin: No rash or itch Physical Exam Physical Exam: PHYSICAL EXAM: General: awake, alert, no apparent distress Head: Normocephalic, atraumatic ENT: PERRL, EOMI, no pharyngeal exudate, mucous membranes moist Neuro: AAO x 3, speech clear and appropriate, strength intact bilaterally 5/5, sensation intact and equal all extremities and dermatomes, no pronator drift Chest: equal rise and fall of the chest, no accessory muscle use, no heaves or thrills, Clear to auscultation, on room air, Cardiac: Regular rate and rhythm, telemetry reviewed, skin warm dry, cap refill <3 seconds, peripheral pulses +2 no JVD, no murmur,no edema GI: NABS x 4 quadrants, soft, nontender to palpation, no rebound, guarding or tenderness : Spontaneously voiding, no pain, no CVA tenderness, MSK: Dressing to lumbar intact without strike through or surrounding errythema, MIREYA drain intact with serous sang drainage Extremities: Normal inspection, no peripheral edema or erythema, calfs nontender to palpation Psych: Normal mood and affect Skin: no rash or erythema Results & Data Results & Data ([facility]) Vital Signs (Past 12 Hours) Vital Signs Temp Pulse Pulse Resp BP Pulse Ox O2 Del Method 07/03/22 13:19 89 16 127/73 95 Nasal Cannula 07/03/22 12:50 36.8 C 80 18 133/79 97 Nasal Cannula 07/03/22 12:20 Nasal Cannula 07/03/22 12:20 37.0 C 78 18 174/73 H 96 Nasal Cannula 07/03/22 12:05 73 12 123/76 96 Nasal Cannula 07/03/22 11:55 36.3 C L 84 18 138/91 98 Nasal Cannula 07/03/22 11:35 83 24 136/69 98 Oxymask 07/03/22 11:45 74 25 H 128/65 98 Oxymask 07/03/22 11:25 85 16 144/78 H 98 Oxymask 07/03/22 11:15 36.5 C 86 15 164/85 H 98 Oxymask 07/03/22 08:30 36.8 C 57 L 20 148/99 H 98 Room Air O2 Flow Rate 07/03/22 13:19 1 07/03/22 12:50 2 07/03/22 12:20 2 07/03/22 12:20 2 07/03/22 12:05 2 07/03/22 11:55 2 07/03/22 11:35 5 07/03/22 11:45 5 07/03/22 11:25 5 07/03/22 11:15 5 07/03/22 08:30 Laboratory Results None for review Medications Administered Home Medications ascorbic acid (vitamin C) 1,000 mg tablet (Vitamin C) 1 g PO QAM 03/18/19 [History Confirmed 07/03/22] cyanocobalamin (vitamin B-12) 500 mcg tablet (Vitamin B-12) 500 mcg PO QAM 03/18/19 [History Confirmed 07/03/22] gcragdlb-kna-psqfv acid 300 mcg-lycopene 600 mcg-lutein 300 mcg tablet (Centrum Silver Men) 1 tab PO QAM 03/18/19 [History Confirmed 07/03/22] omeprazole 20 mg capsule,delayed release 20 mg PO UD PRN Acid Reflux 03/18/19 [History Confirmed 07/03/22] pravastatin 40 mg tablet 40 mg PO QAM 03/18/19 [History Confirmed 07/03/22] hydrocodone 10 mg-acetaminophen 325 mg tablet 1 tab PO Q8H #30 tabs 04/04/19 [Rx Confirmed 07/03/22] acetaminophen 500 mg tablet 1,000 mg PO QPM 06/18/22 [History Confirmed 07/03/22] lisinopril 10 mg tablet 10 mg PO QAM 06/18/22 [History Confirmed 07/03/22] gabapentin 1 tab PO QID 06/21/22 [History Confirmed 07/03/22] prednisone 10 mg tablet 10 mg PO DAILY 06/21/22 [History Confirmed 07/03/22] zolpidem 6.25 mg tablet,extended release,multiphase (Ambien CR) 6.25 mg PO HS 07/03/22 [History Confirmed 07/03/22] Active Medications Acetaminophen (Acetaminophen 500 Mg Tab) 1,000 mg PO PREOP MAYELA Stop: 07/03/22 18:00 Last Admin: 07/03/22 08:10 Dose: 1,000 mg Acetaminophen (Acetaminophen 500 Mg Tab) 1,000 mg PO Q8H PRN PRN Reason: MILD Pain Scale 1,2,3 & Pre PT Stop: 08/02/22 12:21 Al Hydrox/Mg Hydrox/Simethicone (Aluminum/Magnesium Susp 30 Ml Udc) 30 ml PO Q6H PRN PRN Reason: Dyspepsia Stop: 08/02/22 12:21 Ascorbic Acid (Ascorbic Acid 500 Mg Tab) 1,000 mg PO QAM MAYELA Stop: 08/03/22 08:59 Bisacodyl (Bisacodyl 10 Mg Supp) 10 mg NV DAILY PRN PRN Reason: Constipation Stop: 08/02/22 12:21 Celecoxib (Celebrex 200 Mg Cap) 200 mg PO PREOP MAYELA Stop: 07/03/22 18:00 Last Admin: 07/03/22 08:10 Dose: 200 mg Cyanocobalamin (Cyanocobalamin (B-12) 500 Mcg Tablet) 500 mcg PO QAM MAYELA Stop: 08/03/22 08:59 Diphenhydramine HCl (Diphenhydramine Capsule 25 Mg Cap) 25 mg PO Q6H PRN PRN Reason: Allergic Rhinitis/Insomnia Stop: 08/02/22 12:21 Gabapentin (Gabapentin 600 Mg Dose) 600 mg PO PREOP MAYELA Stop: 07/03/22 18:00 Last Admin: 07/03/22 08:12 Dose: 600 mg Hydromorphone HCl (Hydromorphone Inj 0.5 Mg/0.5 Ml Syr) 0.5 mg IV Q3H PRN PRN Reason: MODERATE Pain (Scale 4,5,6) & Pre PT Stop: 07/17/22 12:21 Hydromorphone HCl (Hydromorphone Inj 1 Mg/Ml Syringe) 1 mg IV Q3H PRN PRN Reason: SEVERE Pain (Scale 7,8,9,10) Stop: 07/17/22 12:21 Last Admin: 07/03/22 13:08 Dose: 1 mg Hydroxyzine HCl (Hydroxyzine Hcl 25 Mg Tab) 25 mg PO Q8H PRN PRN Reason: Anxiety Stop: 08/02/22 12:21 Cefazolin Sodium (Ancef 2000mg) 2,000 mg in 15 mls @ 3.75 mls/min IV PREOP MAYELA; Protocol Stop: 07/03/22 18:00 Last Admin: 07/03/22 09:10 Dose: 3.75 mls/min Cefazolin Sodium (Ancef 2000mg) 2,000 mg in 15 mls @ 3.75 mls/min IV Q8H MAYELA; Protocol Lactated Ringer's (Lr) 1,000 mls @ 100 mls/hr IV .Q10H MAYELA Stop: 08/02/22 12:21 Last Admin: 07/03/22 12:37 Dose: 100 mls/hr Promethazine HCl 12.5 mg/ (Sodium Chloride) 50.5 mls @ 202 mls/hr IV Q6H PRN PRN Reason: Nausea &/or Vomiting Stop: 08/02/22 12:21 Acetaminophen (Ofirmev) 1,000 mg in 100 mls @ 400 mls/hr IV Q8H PRN PRN Reason: Pain Rating 1-3 & Pre PT Stop: 07/04/22 12:22 Dexamethasone 8 mg/ Syringe 2 mls @ 1 mls/min IV DAILY MAYELA Stop: 07/06/22 09:02 Lisinopril (Lisinopril 10 Mg Tab) 10 mg PO QAM MAYELA Stop: 08/03/22 08:59 Magnesium Hydroxide (Magnesium Hydroxide Susp 30 Ml Udc) 30 ml PO Q24H PRN PRN Reason: Constipation Stop: 08/02/22 12:21 Metoclopramide HCl (Metoclopramide Hcl Inj 5 Mg/Ml 2 Ml Vial) 10 mg IV Q6H PRN PRN Reason: Nausea &/or Vomiting Stop: 08/02/22 12:21 Miscellaneous (Order Awaiting Action [Zolpidem [Ambien Cr] 6.25 Mg Tablet,Ext Release Multiphase]) 1 each N/A QS MAYELA Stop: 08/02/22 15:59 Multivitamins (Multivitamin Tab) 1 tab PO QAM [facility] Stop: 08/03/22 08:59 Naloxone HCl (Naloxone Hcl 0.4 Mg/1 Ml Vial/Carp) 0.1 mg IV Q5M PRN PRN Reason: Oversedation/Resp depression Stop: 08/02/22 12:21 Non-Formulary Medication (Gabapentin) 1 tab PO QID [facility] Stop: 08/02/22 12:59 Ondansetron HCl (Ondansetron Inj 2 Mg/Ml 2 Ml Vial) 4 mg IV Q6H PRN PRN Reason: Nausea &/or Vomiting Stop: 08/02/22 12:21 Ondansetron HCl (Ondansetron 4 Mg Od Tab) 4 mg PO Q6H PRN PRN Reason: Nausea Stop: 08/02/22 12:21 Oxycodone HCl (Oxycodone Hcl Ir 5 Mg Tab (Immediate Release)) 5 - 10 mg PO Q4H PRN PRN Reason: Pain & Pre PT Stop: 07/17/22 12:21 Pantoprazole Sodium (Pantoprazole 40 Mg Tab) 40 mg PO BID [facility]; Protocol Stop: 08/02/22 20:59 Polyethylene Glycol (Polyethylene (Miralax) 17 Gm Pack) 17 gm PO Q6 [facility] Stop: 08/03/22 05:59 Pravastatin Sodium (Pravastatin Sod 40 Mg Tab) 40 mg PO QAM [facility] Stop: 08/03/22 08:59 Senna/Docusate Sodium (Docusate Sodium/Senna 50/8.6mg Tab) 2 tab PO HS [facility] Stop: 08/02/22 20:59 Sodium Biphosphate/Sodium Phosphate (Sod Phosphate/Sod Biphosphate Enema 132 Ml Btl) 132 ml NV ONE PRN PRN Reason: Constipation Stop: 08/02/22 12:21 Tramadol HCl (Tramadol Hcl 50 Mg Tablet) 50 - 100 mg PO Q4H PRN PRN Reason: Moderate-Severe pain & Pre PT Stop: 08/02/22 12:21 PG Care Time/CCT Total # of Minutes Spent Total Time Spent with Patient: Total time spent is greater than 50% in coordination of care (as documented) at patient's floor/unit and/or counseling patient: Coding Level of Care Code 98760 Inpt Consult Level 2 Diagnoses Spinal stenosis, lumbar region with neurogenic claudication M48.062 Hyperlipidemia E78.5 Hypertension I10 Acid reflux K21.9 Palpitations R00.2
--- NOTE | 2022-07-03 14:42 | Fluoroscopy Report ---
FL lumbar spine 2-3V CLINICAL HISTORY: L3-4 HR L3-4 decompression and fusion COMPARISON STUDY: 04/03/2019. FLUOROSCOPY TIME: 10 seconds. FINDINGS: 2 fluoroscopic spot images of the lumbar spine demonstrate posterior decompression and fusi on from L3 through L5 with pedicle screws and rods. Disc spacers are placed. The hardware appears int act. IMPRESSION: Fluoroscopic assistance provided for posterior lumbar fusion as described above. ACT 112: Negative or not required by law. Electronically signed by: Bolivar Quiñones M.D. 07/03/2022 2:41 PM
[2022-07-03] MEDS: NON-FORMULARY MEDICATION (Gabapentin 1 TAB) PO SCH ×2 (15:50→16:48)
[2022-07-03] MEDS: oxyCODONE HCL IR 5 MG TAB (IMMEDIATE RELEASE) PO PRN ×2 (16:47→20:39)
[2022-07-03] MEDS: ceFAZolin 2000MG 2,000 MG/15 ML SYR IV SCH (16:48)
[2022-07-03] MEDS: DOCUSATE SODIUM/SENNA 50/8.6MG TAB PO SCH (20:38)
[2022-07-03] MEDS: PANTOprazole 40 MG TAB PO SCH (20:39)
[2022-07-04] MEDS: HYDROmorphone INJ 1 MG/ML SYRINGE IV PRN ×2 (00:22→05:07)
[2022-07-04] MEDS: ceFAZolin 2000MG 2,000 MG/15 ML SYR IV SCH (00:23)
[2022-07-04] MEDS: oxyCODONE HCL IR 5 MG TAB (IMMEDIATE RELEASE) PO PRN ×5 (03:59→21:55)
[2022-07-04] MEDS: POLYETHYLENE (MIRALAX) 17 GM PACK PO SCH ×4 (05:10→22:45)
[2022-07-04] MEDS: PRAVASTATIN SOD 40 MG TAB PO SCH (08:00)
[2022-07-04] MEDS: CYANOCOBALAMIN (B-12) 500 MCG TABLET PO SCH (08:00)
[2022-07-04] MEDS: ASCORBIC ACID 500 MG TAB PO SCH (08:00)
[2022-07-04] MEDS: PANTOprazole 40 MG TAB PO SCH ×2 (08:00→20:27)
[2022-07-04] MEDS: MULTIVITAMIN TAB PO SCH (08:00)
[2022-07-04] MEDS: dexAMETHasone 8 MG in SYRINGE 0 ML IV SCH (08:01)
--- NOTE | 2022-07-04 08:36 | Orthopedic Progress Note ---
Date of Service July 04, 2022 Assessment & Plan (1) Spinal stenosis, lumbar region with neurogenic claudication: Plan: Ashkan is postoperative day 1 status post hard removal with decompression and instrumented fusion lumbar spine. We will start physical therapy today. KEVIN Lees after physical therapy. DVT prophylaxis is in the form teds and SCDs. Continue with pain control. Anticipate discharge home within the next 24 to 48 hours. Admission and Anticipated Discharge Date Admission Date: July 03, 2022 Subjective Ashkan is postoperative day 1 hard removal with decompression instrumented fusion lumbar spine. He is doing well. Pain is controlled. MIREYA drain output last shift is 50 cc. He had an uneventful evening. Review of Systems Review of Systems: All systems reviewed & are unremarkable except as noted in HPI & below Physical Exam Physical Exam: Alert and oriented x3 No acute distress sitting in a chair Lumbar dressing is clean dry and intact with functioning MIREYA drain Strength is intact bilateral lower extremities Calf soft nontender bilaterally Results & Data ([facility]) Vital Signs (Past 12 Hours) Vital Signs Temp Pulse Resp BP BP Pulse Ox O2 Del Method 07/04/22 07:47 36.7 C 79 20 158/73 H 96 Room Air 07/04/22 03:22 36.8 C 73 20 107/66 96 Room Air 07/04/22 00:00 37 C 98 H 18 134/65 96 Room Air
[2022-07-04 08:51] LABS: Basophils # (auto) 0.01 K/uL (0-0.2); Basophils % (auto) 0.1 %; Hematocrit (blood only) 35.9 % (40.1-51.0); Hemoglobin 12.2 g/dl (14.0-18.0); Immature Granulocytes # (auto) 0.04 K/uL (0.00-0.02); Immature Granulocytes % (auto) 0.4 %; Lymphocytes # (auto) 2.03 K/uL (1.2-3.4); Mean Corpuscular Hemoglobin 29.7 pg (25.0-34.0); Mean Corpuscular Volume 87.3 fL (80.0-100.0); Mean Platelet Volume 9.3 fL (9.4-12.4); Monocytes # (auto) 0.79 K/uL (0.24-0.82); Monocytes % (auto) 7.4 %; Neutrophils # (auto) 7.81 K/uL (1.4-6.5); Neutrophils % (auto) 73.1 %; Platelet Count 284 K/uL (130-400); RDW Coefficient of Variation 12.5 % (11.5-14.5); RDW Standard Deviation 40.1 fL (36.4-46.3); Red Blood Count 4.11 M/uL (4.63-6.08); White Blood Count 10.68 K/ul (4.8-10.8)
[2022-07-04] MEDS ORDERED: lisinopril 10 MG TAB PO SCH (09:00)
[2022-07-04 09:26] LABS: BUN Creatinine Ratio 15.2 (10-20); Calcium 9.4 mg/dl (8.5-10.1); Creatinine Clr Calc Pharmacy 95.3 ml/min; Est GFR (African American) 102.2 ml/min; Est GFR (Non-African American) 88.2 ml/min; Potassium 4.1 mmol/L (3.5-5.1)
[2022-07-04] MEDS: traMADol HCL 50 MG TABLET PO PRN ×3 (11:22→20:27)
[2022-07-04] MEDS ORDERED: lisinopril 10 MG TAB PO STA (12:01)
--- NOTE | 2022-07-04 12:14 | Hospitalist Progress Note ---
Date of Service July 04, 2022 Assessment & Plan (1) Spinal stenosis, lumbar region with neurogenic claudication: Plan: S/P L3-L4 decompression with fusion POD #[address] Douglas under General Anesthesia - Tiered pain control with Rescue Narcan as you have - ICS as you have - Discontinued PRN Benzodiazepines and Vistaril - Discontinuation of Famotidine in place of schedule PPI - Pain control per primary team - ABX per primary team - Steroids per primary team - Blood transfusions per primary team-none needed - Drain Management per primary team - VTE prophylaxis per primary team Scheduled BID PPI while on Decadron 8mg IV but will not need on discharge DOing well post op (2) Hyperlipidemia: Plan: Continue Statin (3) Hypertension: Plan: renal function normal and BPs mildly elevated ok to restart lisinopril 10mg daily now (4) Acid reflux: Plan: On PPI at home 40mg Daily - schedule PPI BID orally while on steroids - If symptoms not controlled or worsen add carafate (5) Palpitations: Plan: History of with resolution following retiring and lifestyle changes with ectopy noted on exam, asymptomatic, nothing to do for this - Stress ECHO negative 03/01 Plan Dispo-continued stay but likely dc in 1-2 days as per Ortho Medically stable and Hospitalist service will sign off at this time Admission and Anticipated Discharge Date Admission Date: July 03, 2022 Subjective Pt having some pain in back but otherwise doing well. Had Montiel out and only a dribble of urine thus far. No BM yet. Had some anxiety earlier this AM and feels better now after getting meds for that. No CP, SOB, nausea. Is ambulating with walker in room when I saw him. Denies heart palpitations Review of Systems Review of Systems: All systems reviewed & are unremarkable except as noted in HPI & below Physical Exam Constitutional: WD/WN, vitals as above Eyes: + anicteric sclerae Neck: trachea midline, no thyromegaly Respiratory: normal respiratory effort, lungs clear to auscultation Cardiovascular: RRR, no murmur, no edema (with frequent ectopy) Chest (Breasts): Chest: normal inspection of chest Gastrointestinal (Abdomen): normal bowel sounds, soft, nontender, no hepatosplenomegaly Musculoskeletal: Extremities: extremities normal to inspection; no cyanosis and no clubbing lower back with dressing in place c/d/i Skin: no rashes, warm and dry Neurologic: moves all extremities and awake; no focal motor deficits Psychiatric: A+Ox3, euthymic affect Lymphatic: no lymphedema Results & Data Results & Data ([facility]) Vital Signs (Past 12 Hours) Vital Signs Temp Pulse Resp BP Pulse Ox O2 Del Method 07/04/22 07:47 36.7 C 79 20 158/73 H 96 Room Air 07/04/22 03:22 36.8 C 73 20 107/66 96 Room Air Laboratory Results 07/04/22 07/04/22 Range/Units 08:21 08:21 WBC 10.68 (4.8-10.8) K/ul RBC 4.11 L (4.63-6.08) M/uL Hgb 12.2 L (14.0-18.0) g/dl Hct 35.9 L (40.1-51.0) % MCV 87.3 (80.0-100.0) fL MCH 29.7 (25.0-34.0) pg MCHC 34.0 (32.0-36.0) g/dL RDW Std Deviation 40.1 (36.4-46.3) fL RDW Coeff of Arlette 12.5 (11.5-14.5) % Plt Count 284 (130-400) K/uL MPV 9.3 L (9.4-12.4) fL Immature Gran % (Auto) 0.4 % Neut % (Auto) 73.1 % Lymph % (Auto) 19.0 % [place] % (Auto) 7.4 % Eos % (Auto) 0.0 % Baso % (Auto) 0.1 % Neut # (Auto) 7.81 H (1.4-6.5) K/uL Lymph # (Auto) 2.03 (1.2-3.4) K/uL [place] # (Auto) 0.79 (0.24-0.82) K/uL Eos # (Auto) 0.00 (0-0.50) K/uL Baso # (Auto) 0.01 (0-0.2) K/uL Immature Gran # (Auto) 0.04 H (0.00-0.02) K/uL Sodium 137 (136-145) mmol/L Potassium 4.1 (3.5-5.1) mmol/L Chloride 104 (98-107) mmol/L Carbon Dioxide 28 (21-32) mmol/L Anion Gap 5 (3-11) BUN 14 (6-23) mg/dl Creatinine 0.92 (0.6-1.4) mg/dl Est Cr Clr Drug Dosing 95.3 ml/min Est GFR ( Amer) 102.2 ml/min Est GFR (Non-Af Amer) 88.2 ml/min BUN/Creatinine Ratio 15.2 (10-20) Glucose 117 H (70-99(Fasting)) mg/dl Calcium 9.4 (8.5-10.1) mg/dl PG Care Time/CCT Total # of Minutes Spent Total Time Spent with Patient: Total time spent is greater than 50% in coordination of care (as documented) at patient's floor/unit and/or counseling patient: Coding Level of Care Code 54488 Subseq Hosp Care Lvl 2 Diagnoses Spinal stenosis, lumbar region with neurogenic claudication M48.062 Hyperlipidemia E78.5 Hypertension I10 Acid reflux K21.9 Palpitations R00.2
[2022-07-04] MEDS ORDERED: ZOLPIDEM TARTRATE 5 MG TAB PO SCH (21:00)
[2022-07-04] MEDS: DOCUSATE SODIUM/SENNA 50/8.6MG TAB PO SCH (21:55)
[2022-07-05] MEDS: oxyCODONE HCL IR 5 MG TAB (IMMEDIATE RELEASE) PO PRN ×2 (02:02→11:58)
[2022-07-05] MEDS: POLYETHYLENE (MIRALAX) 17 GM PACK PO SCH ×2 (05:23→11:58)
[2022-07-05] MEDS: traMADol HCL 50 MG TABLET PO PRN (08:34)
[2022-07-05] MEDS: CYANOCOBALAMIN (B-12) 500 MCG TABLET PO SCH (08:36)
[2022-07-05] MEDS: ASCORBIC ACID 500 MG TAB PO SCH (08:36)
[2022-07-05] MEDS: MULTIVITAMIN TAB PO SCH (08:37)
[2022-07-05] MEDS: PRAVASTATIN SOD 40 MG TAB PO SCH (08:37)
[2022-07-05] MEDS: dexAMETHasone 8 MG in SYRINGE 0 ML IV SCH (08:37)
[2022-07-05] MEDS: PANTOprazole 40 MG TAB PO SCH (08:38)
--- NOTE | 2022-07-05 10:37 | Discharge Summary ---
Date of Service July 05, 2022 Principal Diagnosis Lumbar spinal stenosis with far lateral disc herniation Discharge Data Allergies Allergy/AdvReac Type Severity Reaction Status Date / Time No Known Allergies Allergy Verified 07/03/22 08:16 Consultations 07/03/22 12:22 Consult Hospitalist Routine Procedures Performed Operation Date: 07/03/22 09:05 Actual Procedures p L3-L4 Decompression and Fusion, Spinal Cord Monitoring - Keanu Douglas DO s L3-L4 Hardware Removal - Keanu Douglas DO Ordered Studies 07/03/22 09:05 FL lumbar spine 2-3V Routine Hospital Course (1) Spinal stenosis, lumbar region with neurogenic claudication: Patient with lumbar decompression fusion tolerated this well was taken to orthopedic for possibly. Postop day 1 he was up and ambulating progressed to postop day #2. MIREYA drain decreasing probably. Excellent strength testing. Pain well controlled. Separately discharged home. Discharge orders and instructions found the chart for further review. Total Time Total Time Spent Total Time Spent (In Minutes): 20 minutes Discharge Plan Discharge Items Patient Disposition: Home - Self-Care Reason For Visit: Radiculopathy, Lumbar Region Discharge Diagnosis: Lumbar spinal stenosis with radiculopathy Activity: As commented below Non-emergency contact: Primary Care Provider Call non-emergency contact if: you have any medication questions Follow-up/Referrals: Geovany Downs [Primary Care Provider] - Diet: Regular Addtl Attending Provider Instructions: ACTIVITY RECOMMENDATIONS: SELF CARE INSTRUCTIONS AFTER THORACIC/LUMBAR FUSIONS 1. You may walk to your tolerance. It is good exercise for your legs and back. Expect some back and intermittent leg aches and pains. 2. You may perform "counter-top" level activities (make a sandwich, gerald with a project, etc.). 3. No bending or lifting of more than 10 pounds or back twisting of any nature (roll like a log when turning in bed). 4. You may ride in a car for 20-30 minutes at a time. No driving until after your first visit with your doctor. 5. Frequent changes of position and restricting sitting to 30 minutes at a time will help limit the amount of back spasms and stiffness you may experience. 6. You may discontinue the use of ambulatory aids (cane, crutches, etc.) once your strength and confidence allow. 7. You may sales representative adding machines the shower and let water strike your incision when you arrive home at least once daily. Do not take a tub bath, sit in a hot tub or go into a swimming pool until after your first recheck in the office. SPECIAL CARE INSTRUCTIONS: VERY IMPORTANT TO READ AND REVIEW A. Your surgical incision has been closed with a cosmetic suture under the skin that will dissolve in about 6 weeks. In 14 days, you can use a pair of clean scissors and cut the suture that is left outside of the skin at the ends of your incision. 1. The small skin tapes can be removed 7 days after surgery if they have not fallen off by that point. 2. You may keep the wound open to air as much as possible to promote healing after post-op day number 5 unless told otherwise by your doctor. 3. If you think the wound looks like it is becoming infected (redness or worsening drainage) and/or you are experiencing fever, chill or worsening back pain and muscle spasms, contact the office so that we may evaluate you as soon as possible. B. Complications are uncommon, but please contact us if you have any signs or symptoms of: 1. wound infection (fever higher than 102.5 degrees F, redness, separation of wound, drainage, or increasing pain from the incision) 2. blood clots in legs (pain, swelling, redness and warmth in legs) 3. urinary tract infection (fever higher than 102.5 degrees F, burning upon urination or increased frequency of urination) 4. nerve problems (inability to walk on your toes or heels, numbness, loss of bowel or bladder control) 5. any other symptoms that concern you C. Please call the office at if you have any concerns or questions about your operation or recovery. D. No smoking! Smoking drastically decreases the chance of a solid fusion. E. Do not take any anti-inflammatory medications (Indocin, Advil, Motrin, Aspirin, Naprosyn, etc.) as these may inhibit the chance of a solid fusion. Tylenol is okay to take for pain. MANAGING PAIN AFTER SPINAL SURGERY 1. Narcotic medication is intended for short-term use and will be provided for surgical pain. Surgical pain usually lasts for a period of 4-6 weeks. Narcotic medication includes Percocet, Vicodin, Darvocet, Tylenol #3 or Lortab. 2. Longer-term pain is more appropriately treated with non-narcotic medication such as Tylenol ES. 3. Muscle spasm is not appropriately treated with narcotics. Muscle relaxers such as Soma, Flexeril or Skelaxin can be used along with Tylenol ES. 4. Remember that we all live with some "aches and pains". This is not unusual or uncommon after an injury or as we get older. a. Back pain is expected and may include muscle spasms for 4 to 6 weeks after surgery. The pain should gradually improve. If the pain worsens for no apparent reason, please contact the office. b. Intermittent leg pain may also be experienced and should not be concerned about unless it worsens for no apparent reason. If so, please contact the office. 5. We will provide appropriate medication within the normal guidelines of their prescribed use. We will also be very cautious and aware of potential abuse and extended duration of patients' medication needs. a. Pain medications are for your comfort and to assist with sleep and rest so that the tissue can heal. They are not provided in order to return to normal activity and should not be used through the day. To do so or worsening pain at night can result from ongoing tissue damage and development of tolerance to the prescribed medicine. 6. Please allow 2-3 days to process refills. Prescriptions will not be mailed but must be picked up at the office. FOLLOW UP VISIT: Keep your scheduled follow-up appointment. Any questions, please call the office at . Pending Studies at Discharge: No Stand-Alone Forms: My [facility] [employer], Smoking Cessation Medications and DC Order Prescriptions: New tramadol 50 mg tablet 50 mg PO Q6H PRN (Reason: pain, moderate) Qty: 30 0RF oxycodone 5 mg tablet 5 mg PO Q6H PRN (Reason: pain, severe) Qty: 30 0RF Continued ascorbic acid (vitamin C) [Vitamin C] 1,000 mg Tablet 1 g PO QAM pravastatin 40 mg Tablet 40 mg PO QAM cyanocobalamin (vitamin B-12) [Vitamin B-12] 500 mcg Tablet 500 mcg PO QAM omeprazole 20 mg Capsule,Delayed Release(Dr/Ec) 20 mg PO UD PRN (Reason: Acid Reflux) Centrum Silver Men 300-600-300 mcg Tablet 1 tab PO QAM hydrocodone-acetaminophen 10-325 mg tablet 1 tab PO Q8H Qty: 30 0RF lisinopril 10 mg Tablet 10 mg PO QAM acetaminophen 500 mg Tablet 1,000 mg PO QPM prednisone 10 mg Tablet 10 mg PO DAILY gabapentin 1 tab PO QID zolpidem [Ambien CR] 6.25 mg Tablet,Ext Release Multiphase 6.25 mg PO HS Discharge Orders: Discharge Order (Routine); Ordered 07/05/22 Ordered By: Keanu Douglas Admission Data Admit Date/Time: 07/03/22 11:04 Attending Provider: Keanu Douglas Admit Provider: Keanu Douglas Primary Care Provider: Geovany Downs Other Providers: Basil Altamirano Natalie B.
== END 2022-07-05 12:55 | disposition home or self-care (01) | DRG 455 ==
LOC: ASU 07:39 → 3N 11:04